=== PATIENT | female | born 1945 | race Caucasian/White ===

== ENCOUNTER 2019-06-19 15:10 | Inpatient (IN) ==
--- NOTE | 2019-06-19 16:06 | EKG Report ---
Test Performed on : 06/19/2019 3:55:18 PM Test Reason : abd pain Blood Pressure : / mmHG Vent. Rate : 080 BPM Atrial Rate : 080 BPM P-R Int : 146 ms QRS Dur : 100 ms QT Int : 418 ms P-R-T Axes : 066 038 024 degrees QTc Int : 482 ms Sinus rhythm. with premature atrial complexes. Cannot rule out Inferior infarct , age undetermined Abnormal ECG When compared with ECG of 21-APR-2017 10:31, premature atrial complexes. are now present Confirmed by Sobia CHRISTENSEN, Jacobo ([id number]) on 06/20/2019 10:44:50 AM
--- NOTE | 2019-06-19 16:11 | Diag Imaging Result Doc PS360 ---
EXAM: CHEST-PORTABLE - 06/19/2019 HISTORY: abd pain TECHNIQUE: Portable chest COMPARISON: 04/20/2017 FINDINGS: Heart size appears within normal limits. There is mild prominence of central markings which appears to be chronic. There is mild linear atelectasis near the inferior left hilum. Lungs otherwise appear clear of acute changes. There is no pleural effusion or pneumothorax identified. IMPRESSION: Mild linear atelectasis near inferior left hilum. No other acute changes. Electronically signed by Kg Hicks 06/19/2019 4:08 PM
[2019-06-19 16:52] LABS: BASO# 0.06 X1000 (0.0-0.2); BASO% 0.5 % (0.0-0.8); EOS# 0.23 X1000 (0.0-0.7); EOS% 1.8 % (0.0-10.0); HEMATOCRIT 40.5 % (37.0-47.0); HEMOGLOBIN 13.4 g/dL (12.0-16.0); LYMPH# 3.21 X1000 (1.2-3.4); LYMPH% 25.3 % (20.5-51.1); MCH 31.2 PG (27-31); MCHC 33.1 g/dL (33-37); MCV 94.4 FL (81-99); MONO# 1.19 X1000 (0.11-0.59); MONO% 9.4 % (1.7-9.3); MPV 10.6 FL (7.4-10.4); NEUT# 7.99 X1000 (1.4-6.5); PLT 278 X1000 (130-400); RBC 4.29 XMIL (4.2-5.4); RDW 11.9 % (11.5-14.5); WBC 12.68 X1000 (4.8-10.8)
[2019-06-19 16:56] LABS: INR 1.04; PROTIME 13.7 Seconds (11.0-16.0); PTT 30.2 Seconds (22.3-41.8)
[2019-06-19 17:05] LABS: AGAP 13; ALB/GLOB RATIO 1.1; ALBUMIN 4.1 g/dL (3.5-5.0); ALKALINE PHOSPHATASE 67 U/L (32-104); BUN 11 mg/dL (8-22); CALCIUM 9.5 mg/dL (8.8-10.2); CHLORIDE 97 mmol/L (98-107); COSMO 271; CREATININE 0.9 mg/dL (0.5-0.9); ESTIMATED GFR > 60; GLUCOSE 89 mg/dL (70-104); GOT 20 U/L (10-30); GPT 15 U/L (10-36); POTASSIUM 3.5 mmol/L (3.5-5.1); SODIUM 136 mmol/L (136-145); TCO2 26 mmol/L (25-35); TOTAL BILIRUBIN 0.87 mg/dL (0.20-1.00); TOTAL PROTEIN 7.9 g/dL (6.3-8.3)
[2019-06-19] MEDS ORDERED: LOVENOX SUBQ ONE (17:15)
[2019-06-19] MEDS ORDERED: VANCOMYCIN IV PER PHARMACY MISC SCH (17:30)
[2019-06-19] MEDS: ZOSYN 3.375 GM in NS 50 ML IV SCH (18:03)
[2019-06-19] MEDS: NS 1,000 ML IV SCH (18:04)
[2019-06-19] MEDS ORDERED: KLOR-CON PO ONE (18:44)
--- NOTE | 2019-06-19 19:04 | Diag Imaging Result Doc PS360 ---
CT ABD/PELVIS W/PO AND IV CON - 06/19/2019 INDICATION: abd pain abscess COMPARISON: 04/21/2017 FINDINGS: There is some mild fibrosis in the lung bases particularly in the right lower lobe. No infiltrates. Heart size is normal. There are stable cholecystectomy clips. Otherwise abdominal organs are all normal. No bowel obstruction or inflammation. There is soft tissue edema of the subcutaneous tissue of the anterior pelvic body wall below the umbilicus. This may indicate cellulitis. No fluid collections. No adenopathy. Uterus is absent. Urinary bladder and rectum are normal. There is mild diverticulosis of the sigmoid colon. There are moderate degenerative changes of the spine. No acute or suspicious bony lesion. IMPRESSION: Mild subcutaneous skin inflammation of the anterior pelvic body wall suggesting cellulitis. Diverticulosis coli. Otherwise no acute process. This exam was performed using automated exposure control, adjustment of mA or kV according to patient size, and/or use of iterative reconstruction technique Electronically signed by Brandon Marks 06/19/2019 7:02 PM
[2019-06-19] MEDS ORDERED: VANCOMYCIN 1.6 GM in NS 250 ML IV ONE (20:00)
[2019-06-19] MEDS: NORCO-5 PO PRN (20:29)
[2019-06-19] MEDS ORDERED: SODIUM CHLORIDE 0.9% INJ SCH (20:30)
[2019-06-19] MEDS: NEURONTIN PO SCH (20:31)
[2019-06-19 21:27] LABS: CALCIUM 9.2 mg/dL (8.8-10.2); POTASSIUM 3.7 mmol/L (3.5-5.1)
[2019-06-19] MEDS: KLONOPIN PO SCH (21:28)
[2019-06-19] MEDS: PROTONIX IV SCH (21:28)
--- NOTE | 2019-06-19 22:48 | HISTORY AND PHYSICAL ---
CHIEF COMPLAINT: Abdominal pain. Ms. Sandoval is a 73-year-old, white female patient, complaining of abdominal pain that started on Sunday. The patient had some redness around the umbilicus that started on Sunday. The patient thought it could be related to her allergies due to clothes which she had in the past. Usually it goes away by itself, but it did not. Her allergy persisted. The patient started having pain yesterday. Her redness was spreading. The pain was getting more intense. The patient did have some nausea and chills. The patient was concerned. She came to see me in the office. I evaluated the patient. The patient did have evidence of cellulitis around the umbilicus. Also, some induration, significant pain and tenderness. I was concerned about developing abscess. I decided to admit the patient for further care, IV antibiotics, and workup. The patient understood and agreed. The patient did have chills, low- grade fever, nausea, and abdominal pain. Her redness around umbilicus was spreading. She denied any dysuria or hematuria. No diarrhea, blood, or mucus in the stool. Oral intake was fair to poor. No abdominal distention. The patient denied any cough, expectoration, or hemoptysis. No typical chest pain, palpitations. The patient does have chronic low back pain. More pain with certain movement. No radiculopathy. No heat or cold intolerance. No further history available at this time. ALLERGIES: Biaxin. HOME MEDICATIONS: Include Hyzaar, Neurontin. PAST MEDICAL HISTORY: Significant for chronic low back pain, degenerative disk disease, hypertension, situational depression, hyperlipidemia, menopause, gastritis, and reflux disease. PERSONAL HISTORY: , lives with the . Nonsmoker. Denied alcohol or substance abuse. Independent in activities of daily living. PAST SURGICAL HISTORY: Patient had cholecystectomy. FAMILY HISTORY: Noncontributory. PHYSICAL EXAMINATION: GENERAL: Elderly white female patient, in no acute distress. VITAL SIGNS: Blood pressure 165/60, pulse 85, respiration 18, temperature 98.3 degrees. HEENT: Head atraumatic, normocephalic. [place] conjunctivae. Anicteric sclerae. Extraocular muscle movement normal. Fundus cannot be penetrated. Good oral hygiene. No tonsillopharyngeal congestion or exudate. Ears and nose benign. NECK: Supple. No JVD, thyromegaly, or lymphadenopathy. CHEST: Bilateral good air entry present. A few basal crepitations. No rales. CARDIOVASCULAR: S1 and S2 heard. No gallop or thrill. ABDOMEN: Soft, globular. Bowel sounds present. The patient does have tenderness around the umbilicus, significant redness starting from the umbilicus and spreading around. Some induration around umbilical. EXTREMITIES: No cyanosis, clubbing. No acute DVT. Peripheral pulsation intact. CENTRAL NERVOUS SYSTEM: Alert, awake, oriented x3. No focalities. MUSCULOSKELETAL SYSTEM: Tenderness of lumbosacral spine. CONSIDERATION: Cellulitis around the umbilicus. The patient does have some induration. Possibility of developing abscess cannot be ruled out. Other problems include hypertension, low back pain due to degenerative disk disease, hyperlipidemia, gastritis, and reflux disease. The patient has history of cholecystectomy. LABORATORY AND DIAGNOSTIC DATA: Her lab data done today, revealed leukocytosis, WBC count 12.68, hemoglobin 13.4, hematocrit 40.5, platelet count 278,000. PT/INR 1.04, PTT 30.2. Electrolytes: Potassium was low-normal, BUN 11, creatinine 0.9. I did CT scan of the abdomen and pelvis, which did reveal cellulitis of the abdominal wall. No abscess. PLAN: Admit the patient, IV antibiotics, pain management, close observation. If clinical condition permits, we will watch patient closely and discharge depending on her clinical status. The patient has problem sleeping at night. I gave her Klonopin. Continue home medicine. Overall plan discussed at length with the patient and she is in agreement. cc: Zenon Paulson MD
[2019-06-20] MEDS: ZOSYN 3.375 GM in NS 50 ML IV SCH ×5 (00:30→22:53)
[2019-06-20 03:34] LABS: URINE SOURCE VOIDED
[2019-06-20 03:37] LABS: BILIRUBIN URINE NEGATIVE (NEGATIVE); BLOOD URINE NEGATIVE (NEGATIVE); COLOR STRAW; GLUCOSE URINE NEGATIVE (NEGATIVE); KETONE URINE NEGATIVE (NEGATIVE); LEUKOCYTES URINE NEGATIVE (NEGATIVE); NITRITE URINE NEGATIVE (NEGATIVE); PH URINE 6.5; PROTEIN URINE NEGATIVE (NEGATIVE); SP GRAVITY URINE 1.033; TURBIDITY URINE CLEAR (CLEAR); UROBILINOGEN URINE NORMAL (NORMAL)
[2019-06-20 03:39] LABS: UR EPITHELIAL CELLS <10 /HPF (<10); URINE BACTERIA NEGATIVE /HPF; URINE RBC <10 /HPF (<10); URINE WBC <10 /HPF (<10)
[2019-06-20] MEDS: NS 1,000 ML IV SCH ×2 (05:59→08:17)
[2019-06-20 06:55] LABS: BASO# 0.04 X1000 (0.0-0.2); BASO% 0.6 % (0.0-0.8); EOS% 2.9 % (0.0-10.0); HEMATOCRIT 36.7 % (37.0-47.0); HEMOGLOBIN 12.1 g/dL (12.0-16.0); LYMPH% 36.1 % (20.5-51.1); MCH 31.6 PG (27-31); MCV 95.8 FL (81-99); MONO# 0.73 X1000 (0.11-0.59); MONO% 10.5 % (1.7-9.3); MPV 10.7 FL (7.4-10.4); NEUT# 3.45 X1000 (1.4-6.5); NEUT% 49.9 % (42.2-75.2); PLT 244 X1000 (130-400); RBC 3.83 XMIL (4.2-5.4); RDW 11.9 % (11.5-14.5); WBC 6.92 X1000 (4.8-10.8)
[2019-06-20 07:41] LABS: HEMOGLOBIN A1C 5.2 % (4.8-6.0)
[2019-06-20] MEDS: NORCO-5 PO PRN ×2 (08:17→21:22)
[2019-06-20] MEDS: LOVENOX SUBQ SCH (08:21)
--- NOTE | 2019-06-20 09:31 | PROGRESS NOTE ---
DATE: 06/20/2019 A 73-year-old white female patient admitted with abdominal pain, infection around the umbilicus, some induration, redness. Patient was started on broad-spectrum antibiotics as the redness was spreading. The patient also had low-grade fever. Her nausea and pain improving. The patient was able to rest well. The patient does have metabolic syndrome. No chest pain or palpitations. No diarrhea, blood or mucus in the stool. The patient does have low back pain. OBJECTIVE: Vital signs: Reviewed. Blood pressure low normal. Neck: Is supple. No JVD. Lungs: Bilateral good air entry present. CVS: S1 and S2 heard. Abdomen: Soft, globular. Bowel sounds present. Patient does have redness around the umbilicus, some tenderness. Extremities: No cyanosis, clubbing. No acute DVT. FITNESS COACH: Alert, awake, able to move all 4 limbs. CONSIDERATION: 1. Cellulitis around the umbilicus. I cleaned umbilicus with Q-Tips and hydrogen peroxide. 2. Chronic low back pain. 3. History of hypertension. 4. Gastritis and reflux disease. PLAN: Continue IV antibiotics. Ambulate the patient. DVT prophylaxis. Close observation. The patient is eager to go home. If clinical condition permits, we will plan discharging patient home soon. cc: Zenon Paulson MD
[2019-06-20] MEDS: PROTONIX IV SCH (21:10)
[2019-06-20] MEDS: NEURONTIN PO SCH (21:10)
[2019-06-20] MEDS: KLONOPIN PO SCH (21:10)
[2019-06-21] MEDS ORDERED: VANCOMYCIN 1.4 GM in NS 250 ML IV SCH (02:00)
[2019-06-21] MEDS: LOVENOX SUBQ SCH (06:24)
[2019-06-21] MEDS: ZOSYN 3.375 GM in NS 50 ML IV SCH (06:24)
[2019-06-21 07:54] VITALS: BP 121/68
[2019-06-21] MEDS ORDERED: FLU VACCINE IM ONE (08:09)
--- NOTE | 2019-06-22 04:38 | DISCHARGE SUMMARY ---
ADMISSION DATE: 06/20/2019 DISCHARGE DATE: 06/21/2019 FINAL DISCHARGE DIAGNOSES: 1. Cellulitis around the umbilicus. 2. Hypertension. 3. Chronic low back pain due to degenerative disk disease. 4. Leukocytosis, improved. 5. Gastritis. HISTORY AND HOSPITAL COURSE: Ms Sandoval is a 73-year-old, white female patient admitted with pain, redness started from umbilicus and spreading around. The pain was moderate in intensity. The patient also had some nausea, evaluated the patient in the office, admitted for further care. The patient was started on vancomycin and Zosyn. I did a CT scan of the abdomen and pelvis. Infection was limited in the subcutaneous tissue and skin. I did check her for diabetes, hemoglobin A1c was 5.2. Her clinical condition improved, pain improved. The redness and induration improving. The patient was able to sleep well. No fever or chills. The patient was complaining of diarrhea. Overall, patient is feeling better, eager to go home. OBJECTIVE: Vital Signs: Noted which is stable. Lungs: Clear. Heart: S1 and S2 heard. Abdomen: Soft. No distention. Bowel sounds present. The redness around the umbilicus improved. Tenderness and induration also improving. Vascular: No acute DVT. DIGITAL RECRUITER: Alert, awake, able to move all 4 limbs. DISCHARGE PLAN: Overall, patient received maximum benefit of hospitalization. My plan initially was to discharge her on Augmentin, but then I decided to discharge her on Bactrim and doxycycline because of her diarrhea. Gave her Odin for pain. Follow up with me next week. In case of more distress, call us back or go to emergency room. Continue home medicine. Plenty of liquids orally. LAB DATA: Initial WBC count was 12.68, improved to 6.92, hemoglobin 12.1, hematocrit 36.7, platelet count was 244,000. Urinalysis was benign. CT scan of abdomen and pelvis, mild subcutaneous skin inflammation of the anterior pelvis body wall suggesting cellulitis, diverticulosis coli. Otherwise, no acute process. cc: Zenon Paulson MD
== END 2019-06-21 08:38 | disposition home or self-care (01) | DRG 603 ==
LOC: DIRADM → EDIPHOLD 15:10 → 4N 18:56
PROVIDERS: ADMIT Internal Medicine; ATTEND Internal Medicine